=== PATIENT | male | born 1960 | race Caucasian/White ===

== ENCOUNTER 2017-08-22 02:11 | Emergency (ER) | payer OTHER ==
--- NOTE | 2017-08-22 02:49 | EDM.PDOC ---
ED HPI GENERAL MEDICAL PROBLEM - General Chief Complaint: General Stated Complaint: SWOLLEN LEFT LEG Time Seen by Provider: 08/22/17 02:35 Source of Information: Reports: Patient History Limitations: Reports: No Limitations - History of Present Illness INITIAL COMMENTS - FREE TEXT/NARRATIVE: 56 yo male presents with about 18 hrs of progressive swelling of the left leg. No fever or chills. Tried icing the leg at bedtime and when that didn't help came in. No SOB. No calf pain. 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: Reports: Other (see below) (Iced leg) - Related Data Allergies Allergy/AdvReac Type Severity Reaction Status Date / Time No Known Allergies Allergy Verified 08/22/17 02:22 Home Meds: Home Meds Omeprazole Magnesium [Prilosec Otc] 20 mg PO DAILY 06/11/14 [History] Cephalexin 500 mg PO Q6H #30 capsule 08/22/17 [Rx] Sulfamethoxazole/Trimethoprim [Bactrim Ds Tablet] 1 each PO Q12H #14 tablet [Rx] Past Medical History HEENT History: Reports: Allergic Rhinitis, Impaired Vision Gastrointestinal History: Reports: GERD Genitourinary History: Reports: Renal Calculus Musculoskeletal History: Reports: Fracture, Other (See Below) Other Musculoskeletal History: chronic pain in left heal rt to break in over 25yrs ago - Infectious Disease History Infectious Disease History: Reports: Chicken Pox - Past Surgical History HEENT Surgical History: Reports: Oral Surgery GI Surgical History: Reports: Cholecystectomy, Colonoscopy, EGD Social & Family History - Tobacco Use Smoking Status *Q: Never Smoker - Caffeine Use Caffeine Use: Reports: Soda - Recreational Drug Use Recreational Drug Use: No ED ROS GENERAL - Review of Systems Review Of Systems: See Below Constitutional: Reports: No Symptoms HEENT: Reports: No Symptoms Respiratory: Reports: No Symptoms Cardiovascular: Reports: No Symptoms GI/Abdominal: Reports: No Symptoms Musculoskeletal: Reports: Other (L leg swollen from knee down) Skin: Reports: No Symptoms Neurological: Reports: No Symptoms ED EXAM, GENERAL - Physical Exam Exam: See Below Exam Limited By: No Limitations General Appearance: Alert, WD/WN, No Apparent Distress Respiratory/Chest: No Respiratory Distress, Lungs Clear, Normal Breath Sounds, No Accessory Muscle Use Cardiovascular: Regular Rate, Rhythm Extremities: Pedal Edema (trace edema to L leg below the knee, no calf pain. Neg Trey's sign.), Redness (lower half of L knee anteriorly.) Neurological: Alert, Oriented, CN II-XII Intact, Normal Cognition Psychiatric: Normal Affect, Normal Mood Skin Exam: Warm, Dry, Intact, Erythema (slight erythema to anterior/lower leg knee with localized tenderness. ), Increased Warmth (L knee, lower half anteriorly.) Course - Vital Signs Last Recorded V/S: Last Vital Signs Temp 36.3 C 08/22/17 02:33 Pulse 69 08/22/17 02:33 Resp 16 08/22/17 02:33 BP 157/99 H 08/22/17 02:33 Pulse Ox 98 08/22/17 02:33 - Orders/Labs/Meds Labs: Laboratory Tests 08/22/17 08/22/17 Range/Units 02:45 02:45 WBC 7.0 (4.5-11.0) K/uL RBC 4.25 L (4.30-5.90) M/uL Hgb 13.5 (12.0-15.0) g/dL Hct 39.2 L (40.0-54.0) % MCV 92 (80-98) fL MCH 32 H (27-31) pg MCHC 34 (32-36) % Plt Count 190 (150-400) K/uL D-Dimer, Quantitative 289 (0.0-400.0) ng/mL Meds: Medications Discontinued Medications Generic Name Dose Route Start Last Admin Trade Name Freq PRN Reason Stop Dose Admin Ceftriaxone Sodium 1 gm 08/22/17 03:21 Rocephin IM 08/22/17 03:22 ONETIME ONE Trimethoprim/Sulfamethoxazole 1 tab 08/22/17 03:21 Septra Ds PO 08/22/17 03:22 ONETIME ONE Departure - Departure Time of Disposition: 03:45 Disposition: Home, Self-Care 01 Condition: Fair Clinical Impression: Prepatellar bursitis Qualifiers: Laterality: left Qualified Code(s): M70.42 - Prepatellar bursitis, left knee - Discharge Information Prescriptions: Cephalexin 500 mg PO Q6H #30 capsule Sulfamethoxazole/Trimethoprim [Bactrim Ds Tablet] 1 each PO Q12H #14 tablet Referrals: PCP,None [Primary Care Provider] - Forms: ED Department Discharge Additional Instructions: Take Bactrim every 12 hrs. Take cephalexin every 6 hrs(start this one in 24 hrs) . Apply moist heat to knee area several times a day. No kneeling. Recheck in the clinic . Return if you get a fever in the interim.
[2017-08-22] MEDS ORDERED: cefTRIAXone 1 GM Vial IM ONE (03:21)
[2017-08-22] MEDS ORDERED: Sulfamethoxazole/Trimethoprim 800-160 MG Tab PO ONE (03:21)
[2017-08-22 03:36] VITALS: BP 144/94
== END 2017-08-22 04:08 | disposition home or self-care (01) ==
LOC: JP.ED 02:11
DX: M70.42 Prepatellar bursitis, left knee (principal); K21.9 Gastro-esophageal reflux disease without esophagitis; Z79.899 Other long term (current) drug therapy
CPT/HCPCS: 36415; 85027; 85379; 96372; 99284; A9270; J0696

== ENCOUNTER 2019-11-03 07:48 | Day surgery (SDC) | payer OTHER ==
[~2019-11-03 07:48] MED LIST: Sodium Chloride 0.9% 1,000 ML IV SCH
[2019-11-03] MEDS ORDERED: Midazolam 1 MG/ML 2 ML SDV ONE (09:21)
[2019-11-03] MEDS ORDERED: fentaNYL 100 MCG/2 ML SDV ONE (09:21)
[2019-11-03] MEDS ORDERED: Propofol 200 MG/20 ML SDV ONE (09:21)
[2019-11-03 11:42] VITALS: BP 112/83; PULSE 66
--- NOTE | 2019-11-03 14:59 | OR ---
DATE OF PROCEDURE: 11/03/2019 SURGEON: Darren Vargas MD PROCEDURES: 1. Esophagogastroduodenoscopy. 2. Colonoscopy. FINDINGS: 1. Inflammation concerning for reflux disease at GE junction, approximately 1 cm in length. 2. Normal colonoscopy. COMPLICATION: None. PIPE ASSEMBLY WORKER: None. ANESTHETIC: MAC. RISKS: Risks, benefits, alternatives, and limitations including, but not limited to infection, bleeding, and perforation were explained to the patient, who wished to proceed. PROCEDURE IN DETAIL: The patient was placed in left lateral decubitus position. The scope was introduced and advanced atraumatically to second part of the duodenum. No evidence of duodenitis or ulceration. Within the stomach itself, no evidence of gastritis. The GE junction showed inflammation concerning for reflux disease and biopsied in all 4 quadrants. The remainder of esophagus was normal. Digital rectal exam was performed without abnormality. Scope was introduced and advanced atraumatically to the ileocecal valve. A photo was taken of this. Scope was brought back through the ascending, transverse, descending colon, and retroflexed. No masses. No polyps. No old or new blood. No diverticulosis. The patient tolerated the procedure well. Darren Vargas MD /[id number]
== END 2019-11-03 11:45 | disposition home or self-care (01) ==
LOC: JP.SDS 07:48
PROVIDERS: ATTEND Surgery
DX: Z12.11 Encounter for screening for malignant neoplasm of colon (principal); K29.70 Gastritis, unspecified, without bleeding; K20.9 Esophagitis, unspecified; K31.89 Other diseases of stomach and duodenum; K22.8 Other specified diseases of esophagus
CPT/HCPCS: 43239; 45378; 88305; 88312; J2250; J2704; J3010; J7030

== ENCOUNTER 2022-06-03 19:07 | Emergency (ER) | payer OTHER ==
[2022-06-03 19:26] VITALS: BP 156/98; PULSE 78
== END 2022-06-03 20:45 | disposition home or self-care (01) ==
LOC: JP.ED 19:07
DX: K04.7 Periapical abscess without sinus (principal); K02.9 Dental caries, unspecified; K21.9 Gastro-esophageal reflux disease without esophagitis
CPT/HCPCS: 99282

== ENCOUNTER 2024-04-10 06:30 | Day surgery (SDC) | payer BC, OTHER ==
[2024-04-10] MEDS: Lactated Ringers 1,000 ML IV SCH (07:09)
[2024-04-10] MEDS ORDERED: fentaNYL 50 MCG/ML SDV ONE (07:26)
[2024-04-10] MEDS ORDERED: Midazolam 1 MG/ML 2 ML SDV ONE (07:26)
[2024-04-10] MEDS ORDERED: Propofol 200 MG/20 ML SDV ONE (07:26)
[2024-04-10 09:13] VITALS: BP 114/70; PULSE 67
== END 2024-04-10 09:00 | disposition home or self-care (01) ==
LOC: JP.SDS 06:30
PROVIDERS: ATTEND Surgery
DX: R10.9 Unspecified abdominal pain (principal); K21.9 Gastro-esophageal reflux disease without esophagitis
CPT/HCPCS: 00731; 43239; 43251; J2250; J2704; J3010; J7120